=== PATIENT | female | born 1960 | race Caucasian/White ===

== ENCOUNTER 2017-11-20 10:29 | Emergency (ER) | payer SELFPAY, OTHER, MEDICAID ==
[2017-11-20] MEDS: IBUPROFEN 600 MG TAB PO (12:16)
== END 2017-11-20 13:35 | disposition home or self-care (01) ==
LOC: FTE 10:29
DX: M77.9 Enthesopathy, unspecified (principal); I10 Essential (primary) hypertension; E11.9 Type 2 diabetes mellitus without complications; Z79.84 Long term (current) use of oral hypoglycemic drugs
CPT/HCPCS: 73630; 99283-25